=== PATIENT | female | born 1940 | race Caucasian/White ===

== ENCOUNTER → 2019-12-07 09:58 | Outpatient (CLI) | payer MEDICARE, BC ==
[2015-12-25 07:30] VITALS: BMI 32.0
[~2019-12-07 09:58] MED LIST: ASPIRIN325 MG PO; BYSTOLIC10 MG PO; CORDARONE200 MG PO; EFFEXOR75 MG PO; HALCION0.25 MG PO; HEMOCYTE PLUS1 CAP PO; HYDROCODONE-APA1 TAB PO; IMDUR30 MG PO; MIRALAX17 GM PO; MOBIC7.5 MG PO; MOTRIN400 MG PO; NORCO 5/325 TAB1 TA1 PO; PLAVIX75 MG PO; XANAX1 MG PO; XARELTO20 MG PO; ZANAFLEX2 M1 PO; ZOCOR10 MG PO; ZOLOFT25 MG; ZOLOFT25 MG PO
== END | disposition home or self-care (01) ==
LOC: D.HCCARDIO 09:58
PROVIDERS: ATTEND Internal Medicine Cardiovascular Disease
DX: I25.10 Atherosclerotic heart disease of native coronary artery without angina pectoris (principal)